=== PATIENT | male | born 2000 | race Two or more races ===

== ENCOUNTER 2024-05-06 18:03 | Inpatient (IN) | payer OTHER ==
[~2024-05-06] VITALS: Ht 167.6 cm; Wt 88.0 kg
[2024-05-06 23:34] LABS: HEMATOCRIT 39.4 % (41-53); HEMOGLOBIN 13.5 g/dL (13.5-17.5); LYMPHOCYTES # (AUTO) 2.6 K/uL (1.0-4.8); LYMPHOCYTES % (AUTO) 31.2 % (22.0-44.0); MEAN CORPUSCULAR HEMOGLOBIN 29.7 pg (26.0-34.0); MEAN CORPUSCULAR HGB CONC 34.2 G/dL (31.0-37.0); MEAN CORPUSCULAR VOLUME 87 fL (80-100); MONOCYTES # (AUTO) 0.5 K/uL (0.1-1.0); MONOCYTES % (AUTO) 6.4 % (2.0-9.0); NEUTROPHILS # (AUTO) 3.9 K/uL (1.8-7.7); NEUTROPHILS % (AUTO) 45.9 % (40.0-70.0); PLATELET COUNT (AUTO) 194 K/uL (150-450); RED BLOOD CELL COUNT(AUTO) 4.54 MIL/uL (4.50-5.90); RED CELL DISTRIBUTION WIDTH 13.6 % (11.5-14.5); WHITE BLOOD COUNT (AUTO) 8.4 K/uL (4.5-11.0)
[2024-05-06 23:36] LABS: EOSINOPHILS % (AUTO) 15.5 % (1.0-6.0)
[2024-05-06 23:42] LABS: ANION GAP 8 mmol/L (8-16); CALCIUM, TOTAL 8.8 mg/dL (8.8-10.5); CARBON DIOXIDE 28 mmol/L (22-29); CHLORIDE 102 mmol/L (98-107); CREATININE 0.69 mg/dL (0.60-1.30); GLOMERULAR FILTR. RATE CALC > 60 mL/min (>60); GLUCOSE,RANDOM 88 mg/dL (70-110); POTASSIUM 3.4 mmol/L (3.5-5.1); SODIUM SERUM 138 mmol/L (136-145); UREA NITROGEN, BLOOD 8 mg/dL (7-18)
[2024-05-06 23:54] LABS: B-TYPE NATRIURETIC PEPTIDE 20 pg/mL (0-100)
[2024-05-06 23:59] LABS: TROPONIN I-HIGH SENSITIVITY Less Than 4 ng/L (<76)
[2024-05-07] MEDS: POTASSIUM CHLORIDE 20 MEQ ER TABLET PO ONE (03:00)
[2024-05-07] MEDS ORDERED: ZOLPIDEM TARTRATE 5 MG TABLET PO PRN (10:00)
[2024-05-07] MEDS ORDERED: MAGNESIUM HYDROXIDE SUSPENSION 30 ML UDCUP PO PRN (10:00)
[2024-05-07 12:00] VITALS: BP 110/60; PULSE 81; RESP 16; TEMP 98.5; O2SAT 98
[2024-05-07 13:09] LABS: APPEARANCE,URINE CLEAR (CLEAR); BILIRUBIN,URINE NEGATIVE (NEGATIVE); COLOR,URINE LIGHT YELLOW (YELLOW); GLUCOSE, URINE (UA) NEGATIVE (NEGATIVE); KETONES,URINE NEGATIVE (NEGATIVE); LEUKOCYTE ESTERASE ,URINE NEGATIVE (NEGATIVE); NITRATE,URINE NEGATIVE (NEGATIVE); OCCULT BLOOD,URINE NEGATIVE (NEGATIVE); PH,URINE 6.5 (5.0-8.0); PROTEIN,URINE NEGATIVE (NEGATIVE); SPECIFIC GRAVITIY, URINE 1.012 (1.003-1.030); UROBILINOGEN,URINE <=1.0 mg/dL (<=1.0)
[2024-05-07 16:00] VITALS: BP 114/57; PULSE 72; RESP 20; TEMP 98.5; O2SAT 99
[2024-05-07 19:55] VITALS: BP 104/58; PULSE 87; RESP 16; TEMP 98.1; O2SAT 98
[2024-05-07 23:00] VITALS: BP 111/53; PULSE 103; RESP 18; TEMP 98.2; O2SAT 99
[2024-05-08 05:06] VITALS: BP 116/67; PULSE 73; RESP 18; TEMP 98.3; O2SAT 99
[2024-05-08] MEDS ORDERED: SODIUM CHLORIDE 3% 15 ML NEB SOLUTION NEB ONE ×2 (05:27→20:41)
[2024-05-08 06:44] LABS: ANION GAP 9 mmol/L (8-16); CALCIUM, TOTAL 9.2 mg/dL (8.8-10.5); CARBON DIOXIDE 26 mmol/L (22-29); CHLORIDE 101 mmol/L (98-107); CREATININE 0.69 mg/dL (0.60-1.30); GLOMERULAR FILTR. RATE CALC > 60 mL/min (>60); GLUCOSE,RANDOM 94 mg/dL (70-110); POTASSIUM 4.1 mmol/L (3.5-5.1); SODIUM SERUM 136 mmol/L (136-145); UREA NITROGEN, BLOOD 12 mg/dL (7-18)
[2024-05-08 08:48] VITALS: BP 106/59; PULSE 88; RESP 18; TEMP 97.9; O2SAT 100
[2024-05-08 14:01] VITALS: BP 112/60; PULSE 77; RESP 16; TEMP 97.6; O2SAT 97
[2024-05-08 17:00] VITALS: BP 109/58; PULSE 88; RESP 16; TEMP 98; O2SAT 96
[2024-05-08 20:04] LABS: MTB PCR w/Rif. Resistance-SPUT NOT DETECTED (Not Detectd)
[2024-05-08 20:19] VITALS: BP 115/63; PULSE 81; RESP 18; TEMP 97.9; O2SAT 96
[2024-05-09] VITALS (8 sets, daily range): BP systolic 98–116; BP diastolic 56–71; PULSE 57–83; RESP 16–18; TEMP 97.6–98.1; O2SAT 96–100
[2024-05-09] MEDS ORDERED: SODIUM CHLORIDE 3% 15 ML NEB SOLUTION NEB ONE (08:37)
[2024-05-10] VITALS (7 sets, daily range): BP systolic 102–122; BP diastolic 59–68; PULSE 62–74; RESP 16–18; TEMP 97.5–98.1; O2SAT 95–100
[2024-05-10 04:06] LABS: HIV 1-2 SCREEN 4TH GEN W/RFLX Non Reactive (Non Reactive)
[2024-05-10] MEDS ORDERED: SODIUM CHLORIDE 3% 15 ML NEB SOLUTION NEB ONE (10:51)
[2024-05-10 12:07] LABS: QUANTIFERON+, Nil Value 0.03 IU/mL; QUANTIFERON+,Mitogen Value >10.00 IU/mL; QUANTIFERON+,TB1 Antigen Value 0.05 IU/mL; QUANTIFERON+,TB2 Antigen Value 0.05 IU/mL; QUANTIFERON, TB GOLD PLUS Negative (Negative)
[2024-05-11 00:38] VITALS: BP 99/54; PULSE 62; RESP 18; TEMP 98.7; O2SAT 97
[2024-05-11 06:03] VITALS: BP 107/63; PULSE 58; RESP 18; TEMP 97.9; O2SAT 100
[2024-05-11 08:00] VITALS: BP 109/69; PULSE 70; RESP 18; TEMP 97.9; O2SAT 98
[2024-05-11 12:00] VITALS: BP 114/53; PULSE 76; RESP 18; TEMP 97.9; O2SAT 98
[2024-05-11 16:00] VITALS: BP 116/59; PULSE 69; RESP 18; TEMP 97.9; O2SAT 97
[2024-05-11 20:00] VITALS: BP 115/68; PULSE 76; RESP 18; TEMP 98.5; O2SAT 96
[2024-05-12 03:55] VITALS: BP 98/61; PULSE 65; RESP 18; TEMP 97.9; O2SAT 98
[2024-05-12 08:00] VITALS: BP 96/53; PULSE 71; RESP 17; TEMP 98; O2SAT 98
[2024-05-12 16:11] VITALS: BP 101/56; PULSE 78; RESP 17; TEMP 98.4; O2SAT 98
[2024-05-12 19:15] VITALS: BP 119/73; PULSE 80; RESP 18; TEMP 97.6; O2SAT 97
[2024-05-13 03:37] VITALS: BP 118/69; PULSE 65; RESP 18; TEMP 97.7; O2SAT 97
[2024-05-13 08:00] VITALS: BP 107/66; PULSE 61; RESP 16; TEMP 98.1; O2SAT 99
[2024-05-13 11:05] LABS: MTB PCR w/Rif. Resistance-SPUT NOT DETECTED (Not Detectd)
[2024-05-13 16:24] VITALS: BP 115/68; PULSE 63; RESP 17; TEMP 98; O2SAT 98
[2024-05-13 20:29] VITALS: BP 104/59; PULSE 73; RESP 18; TEMP 98.3; O2SAT 96
[2024-05-14 05:04] VITALS: BP 107/62; PULSE 62; RESP 18; TEMP 98; O2SAT 98
[2024-05-14 07:30] VITALS: BP 108/63; PULSE 68; RESP 18; TEMP 97.8; O2SAT 98
[2024-05-14 15:53] VITALS: BP 103/63; PULSE 60; RESP 18; TEMP 98; O2SAT 97
[2024-05-14 20:34] VITALS: BP 106/60; PULSE 71; RESP 18; TEMP 98.2; O2SAT 97
[2024-05-15 05:27] VITALS: BP 104/56; PULSE 59; RESP 18; TEMP 97.7; O2SAT 96
[2024-05-15 07:47] VITALS: BP 108/62; PULSE 71; RESP 19; TEMP 98.2; O2SAT 96
[2024-05-15 21:05] VITALS: BP 108/60; PULSE 70; RESP 18; TEMP 98.6; O2SAT 97
[2024-05-16 04:49] VITALS: BP 96/60; PULSE 63; RESP 18; TEMP 98; O2SAT 98
[2024-05-16 08:23] VITALS: BP 109/64; PULSE 62; RESP 19; TEMP 97.8; O2SAT 98
[2024-05-16 21:17] VITALS: BP 106/60; PULSE 66; RESP 18; TEMP 98.4; O2SAT 97
[2024-05-17 05:51] VITALS: BP 97/59; PULSE 59; RESP 18; TEMP 97.7; O2SAT 97
[2024-05-17 08:09] VITALS: BP 102/56; PULSE 55; RESP 18; TEMP 98; O2SAT 98
[2024-05-17 20:00] VITALS: BP 103/62; PULSE 70; RESP 18; TEMP 98.4; O2SAT 99
[2024-05-18 08:24] VITALS: BP 118/70; PULSE 66; RESP 19; TEMP 98.1; O2SAT 98
[2024-05-18 19:55] VITALS: BP 122/65; PULSE 81; RESP 18; TEMP 98.2; O2SAT 97
[2024-05-19 05:01] VITALS: BP 105/73; PULSE 67; RESP 18; TEMP 97.6; O2SAT 97
[2024-05-19 08:00] VITALS: BP 99/55; PULSE 66; RESP 18; TEMP 98; O2SAT 97
[2024-05-19 16:24] VITALS: BP 107/65; PULSE 72; RESP 18; TEMP 98.9; O2SAT 99
[2024-05-19 20:00] VITALS: BP 103/58; PULSE 70; RESP 16; TEMP 98.8; O2SAT 100
[2024-05-20 06:19] VITALS: BP 117/69; PULSE 94; RESP 18; TEMP 97.8; O2SAT 96
[2024-05-20 08:31] VITALS: BP 105/70; PULSE 60; RESP 18; TEMP 97.9; O2SAT 98
[2024-05-20 16:29] VITALS: BP 107/67; PULSE 72; RESP 20; TEMP 97.9; O2SAT 98
[2024-05-20 19:43] VITALS: BP 103/54; PULSE 82; RESP 19; TEMP 98.4; O2SAT 98
[2024-05-21 05:03] VITALS: BP 101/53; PULSE 67; RESP 18; TEMP 97.8; O2SAT 98
[2024-05-21 08:00] VITALS: BP 97/58; PULSE 83; RESP 18; TEMP 98.3
[2024-05-21 16:00] VITALS: BP 102/60; PULSE 65; RESP 18; TEMP 97.8; O2SAT 96
[2024-05-21 20:50] VITALS: BP 107/58; PULSE 68; RESP 18; TEMP 97.8; O2SAT 68
[2024-05-22 04:09] VITALS: BP 126/73; PULSE 65; RESP 18; TEMP 98.2; O2SAT 100
[2024-05-22 08:13] VITALS: BP 95/71; PULSE 71; RESP 20; TEMP 97.7; O2SAT 99
[2024-05-22 08:13] LABS: BASOPHILS % (AUTO) 0.8 % (0.0-2.0); EOSINOPHILS % (AUTO) 6.4 % (1.0-6.0); HEMATOCRIT 45.7 % (41-53); HEMOGLOBIN 15.5 g/dL (13.5-17.5); LYMPHOCYTES % (AUTO) 33.6 % (22.0-44.0); MEAN CORPUSCULAR HEMOGLOBIN 29.7 pg (26.0-34.0); MEAN CORPUSCULAR VOLUME 88 fL (80-100); MONOCYTES # (AUTO) 0.5 K/uL (0.1-1.0); MONOCYTES % (AUTO) 6.1 % (2.0-9.0); NEUTROPHILS # (AUTO) 4.8 K/uL (1.8-7.7); NEUTROPHILS % (AUTO) 53.1 % (40.0-70.0); PLATELET COUNT (AUTO) 229 K/uL (150-450); RED BLOOD CELL COUNT(AUTO) 5.22 MIL/uL (4.50-5.90); RED CELL DISTRIBUTION WIDTH 13.9 % (11.5-14.5)
[2024-05-22 08:18] LABS: ANION GAP 3 mmol/L (8-16); CARBON DIOXIDE 32 mmol/L (22-29); CHLORIDE 100 mmol/L (98-107); CREATININE 0.81 mg/dL (0.60-1.30); GLOMERULAR FILTR. RATE CALC > 60 mL/min (>60); GLUCOSE,RANDOM 84 mg/dL (70-110); POTASSIUM 3.8 mmol/L (3.5-5.1); SODIUM SERUM 135 mmol/L (136-145); UREA NITROGEN, BLOOD 10 mg/dL (7-18)
[2024-05-22 08:24] LABS: ALANINE AMINOTRANSFERASE 41 U/L (12-78); ALKALINE PHOSPHATASE 82 U/L (46-116); ASPARTATE AMINOTRANSFERASE 19 U/L (15-37); BILIRUBIN,TOTAL 1.2 mg/dL (0.1-1.0); TOTAL PROTEIN, SERUM 7.9 g/dL (6.4-8.2)
[2024-05-22 19:38] VITALS: BP 110/55; PULSE 67; RESP 18; TEMP 98.8; O2SAT 99
[2024-05-23 05:22] VITALS: BP 100/63; PULSE 64; RESP 18; TEMP 98; O2SAT 96
[2024-05-23 07:33] LABS: BASOPHILS % (AUTO) 0.6 % (0.0-2.0); EOSINOPHILS % (AUTO) 7.4 % (1.0-6.0); HEMATOCRIT 43.4 % (41-53); HEMOGLOBIN 14.9 g/dL (13.5-17.5); LYMPHOCYTES # (AUTO) 2.6 K/uL (1.0-4.8); LYMPHOCYTES % (AUTO) 33.3 % (22.0-44.0); MEAN CORPUSCULAR HEMOGLOBIN 29.9 pg (26.0-34.0); MEAN CORPUSCULAR HGB CONC 34.4 G/dL (31.0-37.0); MEAN CORPUSCULAR VOLUME 87 fL (80-100); MONOCYTES # (AUTO) 0.4 K/uL (0.1-1.0); MONOCYTES % (AUTO) 5.6 % (2.0-9.0); NEUTROPHILS # (AUTO) 4.2 K/uL (1.8-7.7); NEUTROPHILS % (AUTO) 53.1 % (40.0-70.0); PLATELET COUNT (AUTO) 225 K/uL (150-450); RED BLOOD CELL COUNT(AUTO) 4.99 MIL/uL (4.50-5.90); RED CELL DISTRIBUTION WIDTH 13.7 % (11.5-14.5); WHITE BLOOD COUNT (AUTO) 7.9 K/uL (4.5-11.0)
[2024-05-23 07:49] LABS: PROTHROMBIN TIME 10.7 SEC (9.4-11.6)
[2024-05-23 07:53] LABS: ALANINE AMINOTRANSFERASE 39 U/L (12-78); ALBUMIN 3.8 g/dL (3.4-5.0); ALKALINE PHOSPHATASE 76 U/L (46-116); ANION GAP 7 mmol/L (8-16); ASPARTATE AMINOTRANSFERASE 20 U/L (15-37); BILIRUBIN,TOTAL 1.1 mg/dL (0.1-1.0); CALCIUM, TOTAL 8.8 mg/dL (8.8-10.5); CARBON DIOXIDE 28 mmol/L (22-29); CHLORIDE 101 mmol/L (98-107); CREATININE 0.75 mg/dL (0.60-1.30); GLOMERULAR FILTR. RATE CALC > 60 mL/min (>60); GLUCOSE,RANDOM 81 mg/dL (70-110); POTASSIUM 3.9 mmol/L (3.5-5.1); SODIUM SERUM 136 mmol/L (136-145); TOTAL PROTEIN, SERUM 7.5 g/dL (6.4-8.2); UREA NITROGEN, BLOOD 12 mg/dL (7-18)
[2024-05-23 09:30] VITALS: BP 103/54; RESP 18; TEMP 98.5; O2SAT 100
[2024-05-23 16:30] VITALS: BP 110/52; PULSE 66; RESP 18; TEMP 98.6; O2SAT 99
[2024-05-23 20:02] VITALS: BP 106/64; PULSE 71; RESP 18; TEMP 98.1; O2SAT 99
[2024-05-24 05:21] VITALS: BP 98/57; PULSE 60; RESP 20; TEMP 97.7; O2SAT 99
[2024-05-24 07:06] LABS: BASOPHILS % (AUTO) 0.5 % (0.0-2.0); HEMATOCRIT 42.8 % (41-53); HEMOGLOBIN 14.5 g/dL (13.5-17.5); LYMPHOCYTES # (AUTO) 3.2 K/uL (1.0-4.8); LYMPHOCYTES % (AUTO) 35.4 % (22.0-44.0); MEAN CORPUSCULAR HEMOGLOBIN 29.7 pg (26.0-34.0); MEAN CORPUSCULAR HGB CONC 33.9 G/dL (31.0-37.0); MEAN CORPUSCULAR VOLUME 88 fL (80-100); MONOCYTES # (AUTO) 0.6 K/uL (0.1-1.0); MONOCYTES % (AUTO) 6.3 % (2.0-9.0); NEUTROPHILS # (AUTO) 4.6 K/uL (1.8-7.7); NEUTROPHILS % (AUTO) 50.8 % (40.0-70.0); PLATELET COUNT (AUTO) 222 K/uL (150-450); RED BLOOD CELL COUNT(AUTO) 4.89 MIL/uL (4.50-5.90); RED CELL DISTRIBUTION WIDTH 13.7 % (11.5-14.5)
[2024-05-24 07:12] LABS: ALANINE AMINOTRANSFERASE 41 U/L (12-78); ALBUMIN 3.8 g/dL (3.4-5.0); ALKALINE PHOSPHATASE 76 U/L (46-116); ANION GAP 8 mmol/L (8-16); ASPARTATE AMINOTRANSFERASE 19 U/L (15-37); BILIRUBIN,TOTAL 1.1 mg/dL (0.1-1.0); CALCIUM, TOTAL 8.8 mg/dL (8.8-10.5); CARBON DIOXIDE 29 mmol/L (22-29); CHLORIDE 103 mmol/L (98-107); CREATININE 0.75 mg/dL (0.60-1.30); GLOMERULAR FILTR. RATE CALC > 60 mL/min (>60); GLUCOSE,RANDOM 84 mg/dL (70-110); SODIUM SERUM 139 mmol/L (136-145); TOTAL PROTEIN, SERUM 7.4 g/dL (6.4-8.2); UREA NITROGEN, BLOOD 11 mg/dL (7-18)
[2024-05-24 07:56] LABS: PROTHROMBIN TIME 10.9 SEC (9.4-11.6)
[2024-05-24 08:03] VITALS: BP 100/62; PULSE 65; RESP 19; TEMP 97.7; O2SAT 99
[2024-05-24] MEDS ORDERED: LIDOCAINE/PF 1% 30 ML VIAL ONE (08:59)
[2024-05-24] MEDS ORDERED: MIDAZOLAM HCL 2 MG/2 ML VIAL ONE (08:59)
[2024-05-24] MEDS ORDERED: FentaNYL CITRATE PF 100 MCG/2 ML VIAL ONE (08:59)
[2024-05-24] MEDS: FentaNYL CITRATE PF 100 MCG/2 ML VIAL IVP ONE (13:43)
[2024-05-24] MEDS: MIDAZOLAM HCL 2 MG/2 ML VIAL IVP ONE (13:43)
[2024-05-24 19:35] VITALS: BP 102/58; PULSE 72; RESP 18; TEMP 97.7; O2SAT 98
[2024-05-24] MEDS: ACETAMINOPHEN 325 MG TABLET PO PRN (19:52)
[2024-05-25 05:41] VITALS: BP 106/62; PULSE 58; RESP 18; TEMP 98.1; O2SAT 99
[2024-05-25 06:46] LABS: BASOPHILS % (AUTO) 0.7 % (0.0-2.0); EOSINOPHILS % (AUTO) 7.3 % (1.0-6.0); HEMATOCRIT 43.9 % (41-53); HEMOGLOBIN 15.3 g/dL (13.5-17.5); LYMPHOCYTES # (AUTO) 2.9 K/uL (1.0-4.8); MEAN CORPUSCULAR HEMOGLOBIN 30.7 pg (26.0-34.0); MEAN CORPUSCULAR VOLUME 88 fL (80-100); MONOCYTES # (AUTO) 0.5 K/uL (0.1-1.0); MONOCYTES % (AUTO) 6.3 % (2.0-9.0); NEUTROPHILS # (AUTO) 3.7 K/uL (1.8-7.7); NEUTROPHILS % (AUTO) 47.7 % (40.0-70.0); PLATELET COUNT (AUTO) 219 K/uL (150-450); WHITE BLOOD COUNT (AUTO) 7.7 K/uL (4.5-11.0)
[2024-05-25 07:07] LABS: ALANINE AMINOTRANSFERASE 41 U/L (12-78); ALBUMIN 3.9 g/dL (3.4-5.0); ALKALINE PHOSPHATASE 84 U/L (46-116); ANION GAP 5 mmol/L (8-16); ASPARTATE AMINOTRANSFERASE 18 U/L (15-37); BILIRUBIN,TOTAL 1.3 mg/dL (0.1-1.0); CALCIUM, TOTAL 8.9 mg/dL (8.8-10.5); CARBON DIOXIDE 30 mmol/L (22-29); CHLORIDE 102 mmol/L (98-107); CREATININE 0.77 mg/dL (0.60-1.30); GLOMERULAR FILTR. RATE CALC > 60 mL/min (>60); GLUCOSE,RANDOM 87 mg/dL (70-110); POTASSIUM 3.8 mmol/L (3.5-5.1); SODIUM SERUM 137 mmol/L (136-145); TOTAL PROTEIN, SERUM 7.9 g/dL (6.4-8.2); UREA NITROGEN, BLOOD 12 mg/dL (7-18)
[2024-05-25 09:44] VITALS: BP 107/60; PULSE 68; RESP 17; TEMP 97.9; O2SAT 100
[2024-05-25 19:28] VITALS: BP 106/59; PULSE 72; RESP 18; TEMP 98.3; O2SAT 97
[2024-05-26 05:25] VITALS: BP 105/61; PULSE 58; RESP 18; TEMP 97.6; O2SAT 96
[2024-05-26 06:16] LABS: BASOPHILS % (AUTO) 0.6 % (0.0-2.0); EOSINOPHILS % (AUTO) 7.9 % (1.0-6.0); HEMATOCRIT 43.7 % (41-53); LYMPHOCYTES % (AUTO) 38.8 % (22.0-44.0); MEAN CORPUSCULAR HEMOGLOBIN 30.1 pg (26.0-34.0); MEAN CORPUSCULAR HGB CONC 34.3 G/dL (31.0-37.0); MEAN CORPUSCULAR VOLUME 88 fL (80-100); MONOCYTES # (AUTO) 0.5 K/uL (0.1-1.0); MONOCYTES % (AUTO) 6.4 % (2.0-9.0); NEUTROPHILS # (AUTO) 3.6 K/uL (1.8-7.7); NEUTROPHILS % (AUTO) 46.3 % (40.0-70.0); PLATELET COUNT (AUTO) 208 K/uL (150-450); RED BLOOD CELL COUNT(AUTO) 4.98 MIL/uL (4.50-5.90); RED CELL DISTRIBUTION WIDTH 13.8 % (11.5-14.5); WHITE BLOOD COUNT (AUTO) 7.9 K/uL (4.5-11.0)
[2024-05-26 06:39] LABS: ALANINE AMINOTRANSFERASE 41 U/L (12-78); ALBUMIN 3.9 g/dL (3.4-5.0); ALKALINE PHOSPHATASE 82 U/L (46-116); ANION GAP 6 mmol/L (8-16); ASPARTATE AMINOTRANSFERASE 21 U/L (15-37); BILIRUBIN,TOTAL 0.8 mg/dL (0.1-1.0); CALCIUM, TOTAL 8.9 mg/dL (8.8-10.5); CARBON DIOXIDE 28 mmol/L (22-29); CHLORIDE 102 mmol/L (98-107); CREATININE 0.75 mg/dL (0.60-1.30); GLOMERULAR FILTR. RATE CALC > 60 mL/min (>60); GLUCOSE,RANDOM 86 mg/dL (70-110); POTASSIUM 4.3 mmol/L (3.5-5.1); SODIUM SERUM 136 mmol/L (136-145); TOTAL PROTEIN, SERUM 7.6 g/dL (6.4-8.2); UREA NITROGEN, BLOOD 11 mg/dL (7-18)
[2024-05-26 07:49] VITALS: BP 96/55; PULSE 63; RESP 18; TEMP 98.2; O2SAT 98
[2024-05-26] MEDS: *CLINICAL-RX DOSING [ENTER DRUG IN COMMENTS] CLINICAL ONE (13:53)
[2024-05-26] MEDS: PYRIDOXINE HCL 50 MG TABLET PO SCH (15:07)
[2024-05-26] MEDS: ISONIAZID 300 MG TABLET PO SCH (15:07)
[2024-05-26] MEDS: RIFAMPIN 300 MG CAPSULE PO SCH (15:07)
[2024-05-26] MEDS: PYRAZINAMIDE 500 MG TABLET PO SCH (15:07)
[2024-05-26] MEDS: ETHAMBUTOL HCL 400 MG TABLET PO SCH (15:07)
[2024-05-26] MEDS ORDERED: FLUC200T85 PO (17:48)
[2024-05-26] MEDS: FLUCONAZOLE 200 MG TABLET PO SCH (19:03)
[2024-05-26 19:27] VITALS: BP 104/61; PULSE 82; RESP 18; TEMP 97.7; O2SAT 96
[2024-06-01 11:06] LABS: COCCIOIDES AB IGG (ID)-KERN Reactive; COCCIOIDES AB IGM (ID)-KERN Reactive
== END 2024-05-27 01:50 | DRG 196 ==
LOC: EMS 18:03 → EDH 05-07 07:17 → 5N 05-07 09:12 → 4E 05-11 19:00 → 6N 05-24 14:19
PROVIDERS: ADMIT Internal Medicine; ATTEND Internal Medicine
PROC: 0BBL3ZX Excision of Left Lung, Percutaneous Approach, Diagnostic (ICD-10-PCS; principal; 2024-05-24)
DX: J84.10 Pulmonary fibrosis, unspecified (principal); J85.0 Gangrene and necrosis of lung; E87.1 Hypo-osmolality and hyponatremia; E87.6 Hypokalemia; J45.909 Unspecified asthma, uncomplicated; N20.0 Calculus of kidney; Q21.4 Aortopulmonary septal defect; Z72.0 Tobacco use
CPT/HCPCS: 32408; 71045; 71250; 80048; 80053; 81003; 83880; 84484; 85025; 85610; 85730; 86171; 86480; 87015; 87101; 87206; 87389; 87556; 88305; 94640; 99285; G0378; J2250; J3010; J3490; 36415-L1; 36415-TC